=== PATIENT | male | born 1960 | race African-American/Black ===

== ENCOUNTER 2018-05-23 11:26 | Inpatient (IN) | payer MEDICAID ==
[~2018-05-23] VITALS: Ht 172.7 cm; Wt 62.5 kg
[~2018-05-23 11:26] MED LIST: ATEN-187 PO; CHLO25 PO; DIPH25CA85 PO; GABA-529 PO; ZIPR20CA2 PO
[2018-05-23] MEDS ORDERED: SODIUM CHLORIDE 0.9% 250 ML IRRIG SOLUTION BOTTLE IRRIG ONE (11:45)
[2018-05-23] MEDS ORDERED: ZIPR40CA2 PO (11:50)
[2018-05-23] MEDS ORDERED: LIDOCAINE/PF 2% 5 ML VIAL INJ ONE (12:00)
[2018-05-23] MEDS ORDERED: DEXAMETHASONE SOD PHOS 4 MG/ML VIAL IVP ONE (12:00)
[2018-05-23] MEDS ORDERED: PROPOFOL 1% 20 ML VIAL IVP ONE (12:00)
[2018-05-23] MEDS ORDERED: KETOROLAC TROMETHAMINE 60 MG/2 ML VIAL IM ONE (12:00)
[2018-05-23] MEDS ORDERED: MORPHINE SULFATE 4 MG/ML SYRINGE IVP ONE (12:00)
[2018-05-23] MEDS ORDERED: KETAMINE HCL 50 MG/ML 10 ML VIAL IVP ONE (12:00)
[2018-05-23 12:33] LABS: BASOPHILS % (AUTO) 0.3 % (0.0-2.0); EOSINOPHILS % (AUTO) 0.8 % (1.0-6.0); HEMATOCRIT 43.8 % (41-53); LYMPHOCYTES # (AUTO) 1.5 K/uL (1.0-4.8); LYMPHOCYTES % (AUTO) 27.5 % (22.0-44.0); MEAN CORPUSCULAR HEMOGLOBIN 30.8 pg (26.0-34.0); MEAN CORPUSCULAR HGB CONC 34.1 G/dL (31.0-37.0); MEAN CORPUSCULAR VOLUME 90 fL (80-100); MONOCYTES # (AUTO) 0.4 K/uL (0.1-1.0); NEUTROPHILS # (AUTO) 3.6 K/uL (1.8-7.7); NEUTROPHILS % (AUTO) 63.4 % (40.0-70.0); PLATELET COUNT (AUTO) 235 K/uL (150-450); RED BLOOD CELL COUNT(AUTO) 4.86 MIL/uL (4.50-5.90); RED CELL DISTRIBUTION WIDTH 14.3 % (11.5-14.5)
[2018-05-23 12:55] LABS: ANION GAP 6 mmol/L (8-16); CALCIUM, TOTAL 8.7 mg/dL (8.8-10.5); CARBON DIOXIDE 29 mmol/L (22-29); CHLORIDE 101 mmol/L (98-107); CREATININE 0.77 mg/dL (0.60-1.30); GLOMERULAR FILTR. RATE CALC > 60 mL/min (>60); GLUCOSE,RANDOM 96 mg/dL (70-110); POTASSIUM 4.2 mmol/L (3.5-5.1); SODIUM SERUM 136 mmol/L (136-145); UREA NITROGEN, BLOOD 10 mg/dL (7-18)
[2018-05-23] MEDS ORDERED: OxyCODONE HCL/ACETAMINOPHEN 5-325 MG TABLET PO ONE (13:00)
[2018-05-23 13:01] LABS: ALANINE AMINOTRANSFERASE 32 U/L (12-78); ALKALINE PHOSPHATASE 136 U/L (46-116); ASPARTATE AMINOTRANSFERASE 22 U/L (15-37); BILIRUBIN,TOTAL 0.3 mg/dL (0.1-1.0); C-REACTIVE PROTEIN QUANT 2.43 mg/dL (0.00-0.30); TOTAL PROTEIN, SERUM 7.6 g/dL (6.4-8.2)
[2018-05-23 13:50] LABS: ERYTHROCYTE SEDIMENTATION RATE 17 MM/HR (0-15)
[2018-05-23] MEDS ORDERED: VANCOMYCIN HCL 1 GM/D5% WATER 200 ML IV ONE (14:30)
[2018-05-23] MEDS ORDERED: SODIUM CHLORIDE 0.9% 1,000 ML IV ONE ×3 (14:30→17:14)
[2018-05-23] MEDS ORDERED: ACETAMINOPHEN 325 MG TABLET PO PRN ×2 (15:15→21:30)
[2018-05-23] MEDS ORDERED: 0.9% SODIUM CHLORIDE 10 ML SYRINGE IVP PRN (15:15)
[2018-05-23] MEDS ORDERED: ONDANSETRON HCL 4 MG/2 ML VIAL IVP PRN ×2 (15:15→21:30)
[2018-05-23 15:41] LABS: PROTHROMBIN TIME 10.2 SEC (9.4-11.6)
[2018-05-23] MEDS ORDERED: BUPIVACAINE HCL/PF 0.25% 30 ML VIAL ONE (16:27)
[2018-05-23] MEDS ORDERED: ACETAMINOPHEN 1000 MG/ISO-OSM 100 ML IV ONE (16:28)
[2018-05-23 16:55] VITALS: BP 140/76
[2018-05-23] MEDS ORDERED: BUPIVACAINE/EPI/PF 0.5% 30 ML VIAL ONE (17:14)
[2018-05-23] MEDS ORDERED: MEPERIDINE-PF 25 MG/ML VIAL IVP PRN (18:15)
[2018-05-23] MEDS ORDERED: HYDROmorphone 2 MG/ML SYRINGE IVP PRN ×2 (18:15)
[2018-05-23] MEDS ORDERED: FentaNYL CITRATE-PF 100 MCG/2 ML VIAL IVP PRN (18:15)
[2018-05-23] MEDS ORDERED: HydrALAZINE HCL 20 MG/ML VIAL ONE (18:37)
[2018-05-23] MEDS ORDERED: RINGERS SOLUTION,LACTATED 500 ML IV ONE (18:40)
[2018-05-23] MEDS ORDERED: HydrALAZINE HCL 20 MG/ML VIAL IVP ONE (18:45)
[2018-05-23 19:44] VITALS: BP 146/74
[2018-05-23] MEDS ORDERED: BISACODYL 10 MG RECTAL RECTAL SUPPOSITORY PR PRN (21:30)
[2018-05-23] MEDS ORDERED: HYDROCODONE/ACETAMINOPHEN 5-325 MG TABLET PO PRN (21:30)
[2018-05-23] MEDS ORDERED: MORPHINE SULFATE 4 MG/ML SYRINGE IVP PRN (21:30)
[2018-05-23] MEDS ORDERED: ZOLPIDEM TARTRATE 5 MG TABLET PO PRN (21:30)
[2018-05-23] MEDS ORDERED: MAGNESIUM HYDROXIDE SUSPENSION 30 ML UDCUP PO PRN (21:30)
[2018-05-23 23:35] VITALS: BP 147/74
[2018-05-23] MEDS: VANCOMYCIN HCL 750 MG in DEXTROSE 5%-WATER 250 ML IV SCH (23:52)
[2018-05-23] MEDS: HEPARIN SODIUM,PORCINE 5,000 UNITS/ML VIAL SQ SCH (23:52)
[2018-05-23] MEDS: ACETAMINOPHEN 500 MG TABLET PO SCH (23:53)
[2018-05-24 04:35] VITALS: BP 136/72
[2018-05-24] MEDS: KETOROLAC TROMETHAMINE 15 MG/ML VIAL IVP SCH ×4 (04:36→23:35)
[2018-05-24] MEDS ORDERED: SODIUM CHLORIDE 0.9% IRRIG BTL 1,000 ML IRRIG ONE (04:51)
[2018-05-24 06:52] LABS: ALANINE AMINOTRANSFERASE 27 U/L (12-78); ALBUMIN 2.7 g/dL (3.4-5.0); ALKALINE PHOSPHATASE 130 U/L (46-116); ANION GAP 7 mmol/L (8-16); ASPARTATE AMINOTRANSFERASE 18 U/L (15-37); BILIRUBIN,TOTAL 0.3 mg/dL (0.1-1.0); CALCIUM, TOTAL 8.7 mg/dL (8.8-10.5); CARBON DIOXIDE 25 mmol/L (22-29); CHLORIDE 103 mmol/L (98-107); GLOMERULAR FILTR. RATE CALC > 60 mL/min (>60); GLUCOSE,RANDOM 124 mg/dL (70-110); POTASSIUM 4.4 mmol/L (3.5-5.1); SODIUM SERUM 135 mmol/L (136-145); TOTAL PROTEIN, SERUM 7.3 g/dL (6.4-8.2); UREA NITROGEN, BLOOD 8 mg/dL (7-18)
[2018-05-24 07:26] LABS: BASOPHILS % (AUTO) 0.1 % (0.0-2.0); EOSINOPHILS % (AUTO) 0.1 % (1.0-6.0); HEMATOCRIT 46.1 % (41-53); HEMOGLOBIN 16.1 g/dL (13.5-17.5); LYMPHOCYTES # (AUTO) 1.8 K/uL (1.0-4.8); LYMPHOCYTES % (AUTO) 21.9 % (22.0-44.0); MEAN CORPUSCULAR HGB CONC 34.9 G/dL (31.0-37.0); MEAN CORPUSCULAR VOLUME 89 fL (80-100); MONOCYTES # (AUTO) 0.3 K/uL (0.1-1.0); MONOCYTES % (AUTO) 3.2 % (2.0-9.0); NEUTROPHILS # (AUTO) 6.2 K/uL (1.8-7.7); NEUTROPHILS % (AUTO) 74.7 % (40.0-70.0); RED BLOOD CELL COUNT(AUTO) 5.19 MIL/uL (4.50-5.90); RED CELL DISTRIBUTION WIDTH 14.3 % (11.5-14.5)
[2018-05-24 07:37] LABS: PLATELET COUNT (AUTO) 237 K/uL (150-450)
[2018-05-24] MEDS ORDERED: ZIPRASIDONE HCL 40 MG CAPSULE PO SCH (08:00)
[2018-05-24 08:01] VITALS: BP 150/67
[2018-05-24] MEDS: GABAPENTIN 100 MG CAPSULE PO SCH ×2 (08:26→21:01)
[2018-05-24] MEDS: ACETAMINOPHEN 500 MG TABLET PO SCH ×3 (08:26→18:39)
[2018-05-24] MEDS: ChlorproMAZINE HCL 25 MG TABLET PO SCH ×2 (08:26→21:01)
[2018-05-24] MEDS: ATENOLOL 25 MG TABLET PO SCH ×2 (08:26→21:01)
[2018-05-24] MEDS: PANTOPRAZOLE SODIUM 40 MG DR TABLET PO SCH (08:27)
[2018-05-24] MEDS: DOCUSATE SODIUM 100 MG CAPSULE PO SCH ×2 (08:27→21:00)
[2018-05-24] MEDS: HEPARIN SODIUM,PORCINE 5,000 UNITS/ML VIAL SQ SCH ×3 (08:27→23:25)
[2018-05-24] MEDS: VANCOMYCIN HCL 750 MG in DEXTROSE 5%-WATER 250 ML IV SCH ×3 (08:37→23:25)
[2018-05-24 11:38] VITALS: BP 130/71
[2018-05-24] MEDS: LORazepam 1 MG TABLET PO SCH ×2 (16:01→23:26)
[2018-05-24] MEDS: ZIPRASIDONE HCL 60 MG CAPSULE PO SCH (17:21)
[2018-05-24 17:40] VITALS: BP 118/60
[2018-05-24 19:25] VITALS: BP 112/54
[2018-05-25 00:09] VITALS: BP 123/57
[2018-05-25] MEDS: ACETAMINOPHEN 500 MG TABLET PO SCH ×3 (01:30→13:30)
[2018-05-25 04:32] VITALS: BP 140/73
[2018-05-25] MEDS: KETOROLAC TROMETHAMINE 15 MG/ML VIAL IVP SCH ×3 (05:21→17:40)
[2018-05-25 06:51] LABS: HEMOGLOBIN A1C 5.8 % (4.5-6.2)
[2018-05-25] MEDS: VANCOMYCIN HCL 750 MG in DEXTROSE 5%-WATER 250 ML IV SCH (08:00)
[2018-05-25 08:05] VITALS: BP 148/93
[2018-05-25] MEDS: HEPARIN SODIUM,PORCINE 5,000 UNITS/ML VIAL SQ SCH ×2 (08:27→16:00)
[2018-05-25] MEDS: GABAPENTIN 100 MG CAPSULE PO SCH (08:27)
[2018-05-25] MEDS: DOCUSATE SODIUM 100 MG CAPSULE PO SCH (08:28)
[2018-05-25] MEDS: ZIPRASIDONE HCL 60 MG CAPSULE PO SCH ×2 (08:28→18:12)
[2018-05-25] MEDS: ATENOLOL 25 MG TABLET PO SCH (08:28)
[2018-05-25] MEDS: PANTOPRAZOLE SODIUM 40 MG DR TABLET PO SCH (08:28)
[2018-05-25] MEDS: ChlorproMAZINE HCL 25 MG TABLET PO SCH (08:28)
[2018-05-25] MEDS ORDERED: MULTIVITAMINS WITH MINERALS, THERAPEUTIC TABLET PO SCH (09:00)
[2018-05-25 10:02] LABS: VANCOMYCIN,RANDOM 12.1 mcg/mL (25.0-50.0)
[2018-05-25] MEDS: LORazepam 1 MG TABLET PO SCH ×2 (11:27→17:40)
[2018-05-25 11:45] VITALS: BP 131/64
[2018-05-25 14:00] LABS: ANION GAP 8 mmol/L (8-16); CALCIUM, TOTAL 8.2 mg/dL (8.8-10.5); CARBON DIOXIDE 26 mmol/L (22-29); CHLORIDE 107 mmol/L (98-107); CREATININE 0.67 mg/dL (0.60-1.30); GLOMERULAR FILTR. RATE CALC > 60 mL/min (>60); GLUCOSE,RANDOM 105 mg/dL (70-110); POTASSIUM 4.1 mmol/L (3.5-5.1); SODIUM SERUM 141 mmol/L (136-145); UREA NITROGEN, BLOOD 15 mg/dL (7-18)
[2018-05-25] MEDS ORDERED: VANCOMYCIN HCL 1.25 GM in DEXTROSE 5%-WATER 250 ML IV SCH (15:00)
[2018-05-25] MEDS ORDERED: DOXY150T PO (15:24)
[2018-05-25 15:49] VITALS: BP 131/72
== END 2018-05-25 18:20 | disposition home or self-care (01) | DRG 711 ==
LOC: EMS 11:27 → 6N 15:44
PROVIDERS: ADMIT Internal Medicine; ATTEND Internal Medicine
PROC: 0K970ZZ Drainage of Right Upper Arm Muscle, Open Approach (ICD-10-PCS; 2018-05-23)
PROC: 0KD70ZZ Extraction of Right Upper Arm Muscle, Open Approach (ICD-10-PCS; principal; 2018-05-23 17:42)
DX: T81.49XA Infection following a procedure, other surgical site, initial encounter (principal); I42.9 Cardiomyopathy, unspecified; F20.0 Paranoid schizophrenia; F12.10 Cannabis abuse, uncomplicated; F10.10 Alcohol abuse, uncomplicated; I10 Essential (primary) hypertension; F17.200 Nicotine dependence, unspecified, uncomplicated; F14.10 Cocaine abuse, uncomplicated; F41.9 Anxiety disorder, unspecified; F84.0 Autistic disorder; K21.9 Gastro-esophageal reflux disease without esophagitis; W25.XXXA Contact with sharp glass, initial encounter; Y83.8 Other surgical procedures as the cause of abnormal reaction of the patient, or of later complication, without mention of misadventure at the time of the procedure; Y93.89 Activity, other specified; Y92.89 Other specified places as the place of occurrence of the external cause; Y99.8 Other external cause status
CPT/HCPCS: 83036; 85651; 86140; 87040; 87070; 87081; 87205; 90686; 96365; 99406; G0378; J0131; J0360; J1100; J1644; J1885; J2270; J2704; J3370; J3490; J7030; J7060; J7120